=== PATIENT | male | born 1950 ===

== ENCOUNTER → 2024-02-28 | Outpatient (CLI) | payer MEDICARE, BC ==
[~2024-02-28] VITALS: Ht 170.2 cm; Wt 65.0 kg
[~2024-02-28] MED LIST: ATOR40TA28 PO; CARV3 PO; ENAL-92 PO; METF-81 PO; SITA100 PO
[2024-02-28 14:55] VITALS: BP 163/93; PULSE 99; RESP 15; TEMP 98.1; O2SAT 94
== END | disposition home or self-care (01) ==
LOC: SRCNTR 14:25
PROVIDERS: ATTEND Internal Medicine
DX: I25.10 Atherosclerotic heart disease of native coronary artery without angina pectoris (principal); I10 Essential (primary) hypertension; E11.9 Type 2 diabetes mellitus without complications; R94.39 Abnormal result of other cardiovascular function study; Z79.899 Other long term (current) drug therapy; Z79.84 Long term (current) use of oral hypoglycemic drugs; Z87.891 Personal history of nicotine dependence; Z86.73 Personal history of transient ischemic attack (TIA), and cerebral infarction without residual deficits
CPT/HCPCS: G0463

== ENCOUNTER → 2024-04-17 | Outpatient (CLI) | payer MEDICARE, BC ==
[~2024-04-17] VITALS: Ht 170.2 cm; Wt 64.0 kg
[~2024-04-17] MED LIST changes: +NITR0.4T52 SL
[2024-04-17 14:11] VITALS: BP 143/80; PULSE 78; RESP 22; TEMP 98; O2SAT 98
== END | disposition home or self-care (01) ==
LOC: SRCNTR 13:59
PROVIDERS: ATTEND Internal Medicine
DX: I25.10 Atherosclerotic heart disease of native coronary artery without angina pectoris (principal); E11.9 Type 2 diabetes mellitus without complications; I10 Essential (primary) hypertension; E78.5 Hyperlipidemia, unspecified; Z86.73 Personal history of transient ischemic attack (TIA), and cerebral infarction without residual deficits; Z79.899 Other long term (current) drug therapy; Z88.8 Allergy status to other drugs, medicaments and biological substances
CPT/HCPCS: G0463; Z7500